=== PATIENT | female | born 1975 | race Caucasian/White ===

== ENCOUNTER 2020-02-12 09:08 | Outpatient (CLI) | payer MEDICARE, SELFPAY ==
--- NOTE | ~2020-02-12 | XR_ITS ---
XR knee RT 3V 02/12/2020 10:17 Indication: Right knee pain Procedure: 3 views right knee Comparison: No prior studies for comparison. Findings: There is mild patellofemoral compartment osteoarthritis. No fracture, subluxation or disloc ation. No joint effusion. No focal soft tissue abnormality. Impression: 1: Mild patellofemoral compartment osteoarthritis. Reviewed, dictated and finalized at location A. Impression: 1: Mild patellofemoral compartment osteoarthritis.
--- NOTE | ~2020-02-12 | XR_ITS ---
EXAMINATION: HAND-JOSELIN ARTHRITIS 3+VIEWS DATE: 02/12/2020 10:17 INDICATION: Unspecified osteoarthritis TECHNIQUE: Posteroanterior, lateral, and oblique views of the left and of the right hands as well as a ballcatchers view of both hands were obtained. COMPARISON: None. FINDINGS: The positioning on the lateral projection of the left wrist is suboptimal however there appears to be increased lunocapitate and scapholunate angles consistent with dorsal intercalated segment instabili ty (DISI). Alignment at both hands and wrists is otherwise normal. No fracture. The left scaphoid bon e appears subtly decreased in size relative to the right scaphoid with irregular proximal cortical co ntour with subtle increased sclerosis suggesting possible osteonecrosis. Mild osteoarthritis at the l eft radiocarpal, midcarpal and triscaphe joints. Suggestion of a small loose body at the dorsal side of the radiocarpal articulation. Additional relatively symmetric minimal osteoarthritis at the bilate ral first metacarpophalangeal and a few interphalangeal joints. No erosions to suggest an inflammator y arthritis. IMPRESSION: 1. Asymmetric mild osteoarthritis at the left wrist and carpus with small and somewhat irregularly sh aped left lunate and DISI which suggests secondary osteoarthritis related to either prior trauma or o steonecrosis of the lunate. 2. Otherwise minimal osteoarthritis with typical relatively symmetric distribution at the bilateral f irst metacarpophalangeal and multiple interphalangeal joints. Reviewed, dictated and finalized at location A. IMPRESSION: 1. Asymmetric mild osteoarthritis at the left wrist and carpus with small and s omewhat irregularly shaped left lunate and DISI which suggests secondary osteoa rthritis related to either prior trauma or osteonecrosis of the lunate. 2. Otherwise minimal osteoarthritis with typical relatively symmetric distribut ion at the bilateral first metacarpophalangeal and multiple interphalangeal vandana nts.
--- NOTE | ~2020-02-12 | XR_ITS ---
XR lumbar spine 2-3V 02/12/2020 10:17 Indication: Low back pain Procedure: 3 views lumbar spine Comparison: 11/17/2011 Findings: There is calcification right upper abdomen, likely a gallstone. Vertebral body heights are maintained. No acute fracture or traumatic malalignment. No evidence for spondylolisthesis. No signif icant disc narrowing. Pedicles intact. Sacral foramen are symmetric. Impression: 1: No significant abnormality of the lumbar spine. 2: Probable cholelithiasis. Reviewed, dictated and finalized at location A. Impression: 1: No significant abnormality of the lumbar spine. 2: Probable cholelithiasis.
--- NOTE | ~2020-02-12 | XR_ITS ---
EXAMINATION: XR foot RT standing 2V DATE: 02/12/2020 10:17 INDICATION: Normally immunologic findings in the serum TECHNIQUE: Dorsoplantar and lateral views of the right foot were obtained. COMPARISON: Right ankle radiographs dated 11/17/2011 FINDINGS: Interval removal of the prior plain screw fixation at the distal right fibula which has been resected . Screws previously at the medial malleolus of also been removed along with resection of the tip of t he medial malleolus. Right ankle and subtalar arthrodesis with a retrograde intramedullary rajan and in terlocking screw fixation. There are couple additional screws with washers, one at the distal tibia a nd one spanning the subtalar joint. The ankle joint appear solidly fused. Residual lucency and cortic ated articular surfaces across the subtalar joint line. Alignment of the ankle and hindfoot is near-a natomic. Third and fourth hammertoes. No fracture. Mild osteoarthritis at the first metatarsophalange al and a few interphalangeal joints. No cortical erosions. Achilles calcaneal spur. Soft tissues are unremarkable. IMPRESSION: 1. Instrumented right ankle and hindfoot arthrodesis in near-anatomic alignment. 2. Polyarticular arthritis in the forefoot. Reviewed, dictated and finalized at location A. IMPRESSION: 1. Instrumented right ankle and hindfoot arthrodesis in near-anatomic alignment . 2. Polyarticular arthritis in the forefoot.
--- NOTE | ~2020-02-12 | XR_ITS ---
EXAMINATION: XR foot LT standing 2V DATE: 02/12/2020 10:17 INDICATION: Normally immunologic findings in the serum. TECHNIQUE: Dorsoplantar and lateral views of the left foot were obtained. COMPARISON: None. FINDINGS: Alignment is normal. No fracture. Mild osteoarthritis at the first metatarsophalangeal and a few inte rphalangeal joints. No erosions. Achilles calcaneal spur. Soft tissues are unremarkable. IMPRESSION: 1. Plantar calcaneal spur plantar calcaneal spur and mild osteoarthritis in the forefoot. Reviewed, dictated and finalized at location A.
--- NOTE | ~2020-02-12 | XR_ITS ---
XR knee LT 3V 02/12/2020 10:17 Indication: Left knee pain Procedure: 3 views left knee Comparison: No prior studies for comparison. Findings: There is mild osteoarthritis of the medial compartment. No fracture, subluxation or disloca tion. No significant joint effusion. Impression: 1: Mild medial compartment osteoarthritis of the left knee. Reviewed, dictated and finalized at location A. Impression: 1: Mild medial compartment osteoarthritis of the left knee.
[2020-02-12 10:08] LABS: CRP 4.4 mg/dL (<1.0)
[2020-02-12 10:17] LABS: Erythrocyte Sedimentation Rate 14 mm/hr (0-20)
[2020-02-12 10:23] LABS: Complement C3 132 mg/dL (88-165)
[2020-02-14 20:42] LABS: Lupus dRVVT 1:1 Mix Interpreta Not Indicated; Lupus dRVVT Screen 33 sec (<=45); PTT-LA Screen 35 sec (<=40)
[2020-02-15 02:38] LABS: Anti Cardio Antibody IgM 26 MPL (<=12); Anti Cardiolipin Antibody IgA <11 APL (<=11); Anti Cardiolipin Antibody IgG <14 GPL (<=14)
[2020-02-15 20:03] LABS: Angiotensin Converting Enzyme 76 U/L (9-67)
[2020-02-16 09:27] LABS: SS-A <1.0; SS-B <1.0
[2020-02-17 09:42] LABS: SM Antibody <1.0; SM/RNP Antibody <1.0
[2020-02-17 10:23] LABS: Anti Cyclic Citrullinated Pept <16 Units (<20)
== END 2020-02-12 09:09 | disposition home or self-care (01) ==
PROVIDERS: PCP Family Medicine; Visit Provider Internal Medicine
DX: R76.8 Other specified abnormal immunological findings in serum (principal); M19.042 Primary osteoarthritis, left hand; M17.0 Bilateral primary osteoarthritis of knee; Z98.1 Arthrodesis status; M77.32 Calcaneal spur, left foot; M19.072 Primary osteoarthritis, left ankle and foot
CPT/HCPCS: 36415; 72100; 73130; 73562; 73620; 82164; 85613; 85652; 85730; 86140; 86146; 86147; 86160; 86200; 86225; 86235

== ENCOUNTER 2020-04-08 09:40 | Outpatient (CLI) | payer MEDICARE, SELFPAY ==
--- NOTE | ~2020-04-08 | XR_ITS ---
EXAMINATION: XR chest 2V EXAM DATE: 04/08/2020 10:03 INDICATION: Shortness of breath. TECHNIQUE: Frontal and lateral projections of the chest obtained and reviewed. Comparison is made to prior examination from 09/18/2016. FINDINGS: The lungs are clear. There are no pleural effusions. The cardiomediastinal silhouette is within normal limits. There is no pneumothorax suspected. Lower cervical fusion hardware. IMPRESSION: No acute cardiopulmonary findings. Reviewed, dictated and finalized at location B.
== END 2020-04-08 09:41 | disposition home or self-care (01) ==
PROVIDERS: PCP Family Medicine; Visit Provider Internal Medicine
DX: R06.02 Shortness of breath (principal)
CPT/HCPCS: 71046

== ENCOUNTER 2020-04-23 08:59 | Outpatient (CLI) | payer MEDICARE, SELFPAY ==
--- NOTE | 2020-04-23 10:45 | NEURO_ITS ---
Patient Number: [id number] Impression: # Complains of pain in both hands. # Right Carpal Tunnel Syndrome. # Left evolving Carpal Tunnel Syndrome. # Normal needle/EMG exam. # Clinical correlation recommended. Nerve Conduction Studies Anti Sensory Summary Table Stim Site NR Peak (ms) P-T Amp (?V) Site1 Site2 Delta-P (ms) Dist (cm) Manolo (m/s) Left Median Anti Sensory (2-3nd Digit) Wrist 3.0 78.1 Wrist 2-3nd Digit 3.0 14.0 47 Wrist 2.9 63.4 Wrist 2-3nd Digit 3.0 14.0 47 Right Median Anti Sensory (2-3nd Digit) Wrist 3.7 31.9 Wrist 2-3nd Digit 3.7 14.0 38 Wrist 4.0 17.7 Wrist 2-3nd Digit 3.7 14.0 38 Left Radial Anti Sensory (Base 1st Digit) Wrist 2.1 25.5 Wrist Base 1st Digit 2.1 0.0 Right Radial Anti Sensory (Base 1st Digit) Wrist 2.1 30.4 Wrist Base 1st Digit 2.1 0.0 Left Ulnar Anti Sensory (5th Digit) Wrist 2.3 80.8 Wrist 5th Digit 2.3 14.0 61 Right Ulnar Anti Sensory (5th Digit) Wrist 2.2 44.0 Wrist 5th Digit 2.2 14.0 64 Motor Summary Table Stim Site NR Onset (ms) O-P Amp (mV) Site1 Site2 Delta-0 (ms) Dist (cm) Manolo (m/s) Left Median Motor (Abd Poll Brev) Wrist 3.4 3.6 Elbow Wrist 4.5 26.0 58 Elbow 7.9 6.8 Right Median Motor (Abd Poll Brev) Wrist 4.3 3.4 Elbow Wrist 4.0 26.0 65 Elbow 8.3 5.3 Left Ulnar Motor (Abd Dig Minimi) Wrist 2.3 6.6 A Elbow Wrist 4.2 27.0 64 A Elbow 6.5 6.2 Right Ulnar Motor (Abd Dig Minimi) Wrist 2.2 7.0 A Elbow Wrist 4.3 26.0 60 A Elbow 6.5 6.3 F Wave Studies NR F-Lat (ms) L-R F-Lat (ms) Left Median (Mrkrs) (Abd Poll Brev) 25.98 0.33 Right Median (Mrkrs) (Abd Poll Brev) 26.32 0.33 Left Ulnar (Mrkrs) (Abd Dig Min) 25.21 0.88 Right Ulnar (Mrkrs) (Abd Dig Min) 26.09 0.88 EMG Side Muscle Nerve Root Ins Act Fibs Amp Dur Recrt Comment Right 1stDorInt Ulnar C8-T1 Nml Nml Nml Nml Nml Right Ext Indicis Radial (Post Int) C7-8 Nml Nml Nml Nml Nml Right Ext Digitorum Radial (Post Int) C7-8 Nml Nml Nml Nml Nml Right BrachioRad Radial C5-6 Nml Nml Nml Nml Nml Right PronatorTeres Median C6-7 Nml Nml Nml Nml Nml Right Abd Poll Brev Median C8-T1 Nml Nml Nml Nml Nml Left 1stDorInt Ulnar C8-T1 Nml Nml Nml Nml Nml Left Ext Indicis Radial (Post Int) C7-8 Nml Nml Nml Nml Nml Left Ext Digitorum Radial (Post Int) C7-8 Nml Nml Nml Nml Nml Left BrachioRad Radial C5-6 Nml Nml Nml Nml Nml Left PronatorTeres Median C6-7 Nml Nml Nml Nml Nml Left Abd Poll Brev Median C8-T1 Nml Nml Nml Nml Nml Right ABD Dig Min Ulnar C8-T1 Nml Nml Nml Nml Nml Left ABD Dig Min Ulnar C8-T1 Nml Nml Nml Nml Nml MTDD
== END 2020-04-23 09:00 | disposition home or self-care (01) ==
LOC: ANHNEURO 09:01
PROVIDERS: PCP Family Medicine; Visit Provider Nurse Practitioner Family
DX: G56.03 Carpal tunnel syndrome, bilateral upper limbs (principal)
CPT/HCPCS: 95886; 95911

== ENCOUNTER 2021-05-06 08:09 | Outpatient (CLI) | payer MEDICARE, SELFPAY ==
--- NOTE | ~2021-05-06 | US_ITS ---
EXAMINATION: US venous doppler [facility] EXAM DATE: 05/06/2021 08:42 INDICATION: Left leg pain and swelling. History of blood clots. TECHNIQUE: Multiple grayscale, color flow and Doppler images of the left lower extremity deep venous system were obtained and reviewed. There is no prior study for comparison. FINDINGS: The left common femoral, femoral and profunda veins demonstrate normal color flow, respirat ory variation, augmentation and compressibility. Compressibility, color flow confirmed within the le ft popliteal, posterior tibial, peroneal, and greater saphenous veins. IMPRESSION: 1. No left lower extremity deep venous thrombosis. Reviewed, dictated and finalized at location B.
== END 2021-05-06 08:10 | disposition home or self-care (01) ==
PROVIDERS: PCP Family Medicine; Visit Provider Orthopaedic Surgery
DX: M79.89 Other specified soft tissue disorders (principal)
CPT/HCPCS: 93971

== ENCOUNTER 2021-12-24 13:03 | Inpatient (IN) | payer MEDICARE, MEDICAID, SELFPAY ==
[2021-12-24] VITALS (14 sets, daily range): BP systolic 95–139; BP diastolic 59–83; PULSE 71–81; RESP 12–32; TEMP 36.3–37.3; O2SAT 83–97; BMI 48.6
--- NOTE | ~2021-12-24 | XR_ITS ---
XR chest 1V portable 12/24/2021 14:07 Indication: Shortness of breath for 5 days. Wheezing. Procedure: AP portable chest Comparison: Comparison to multiple prior studies sequentially, with oldest reviewed study dated 08/10. Findings: There is diffuse bilateral airspace disease which may represent edema or pneumonia. No pleu ral effusion or pneumothorax. No acute osseous abnormality. Impression: 1: Diffuse bilateral airspace disease has developed which may represent edema or pneumonia. Reviewed, dictated and finalized at location B. Impression: 1: Diffuse bilateral airspace disease has developed which may represent edema o r pneumonia.
--- NOTE | ~2021-12-24 | XR_ITS ---
EXAMINATION: XR chest 2V DATE: 12/27/2021 09:25 INDICATION: Shortness of breath TECHNIQUE: Frontal and lateral views of the chest are obtained COMPARISON: 12/24/2021 FINDINGS: Patchy interstitial and airspace opacities persist throughout all lung zones with slight im provement. There is no pleural effusion or pneumothorax. The cardiomediastinal silhouette is normal. There is mild thoracic spondylosis. Changes of anterior fusion are noted in the cervical spine. IMPRESSION: 1. Diffuse lung disease with interval improvement, consistent with resolving pneumonia and/or pulmona ry edema. Reviewed, dictated and finalized at location B. IMPRESSION: 1. Diffuse lung disease with interval improvement, consistent with resolving pn eumonia and/or pulmonary edema.
--- NOTE | 2021-12-24 13:14 | ECG_ITS ---
Measurements Intervals [place] Rate: 79 P: 41 DE: 136 QRS: 8 QRSD: 94 T: 29 QT: 368 QTc: 422 Interpretive Statements SINUS RHYTHM POSSIBLE LEFT ATRIAL ENLARGEMENT [-0.1mV P-WAVE IN V1/V2] OTHERWISE NORMAL ECG NO PREVIOUS ECG AVAILABLE FOR COMPARISON Electronically Signed On 12-24-2021 16:17:43 CDT by Yaakov Interiano M.D.
[2021-12-24] MEDS: methylPREDNISolone SOD SUCC 125 MG VIAL IV PUSH (13:25)
[2021-12-24] MEDS: ALBUTEROL SULFATE NEB 2.5 MG/0.5 ML INH 15 MG INHALATION (13:30)
[2021-12-24] MEDS: IPRATROPIUM BR 0.02% INH SOLN 0.5 MG/2.5 ML VIAL 1.5 MG INHALATION (13:30)
[2021-12-24 13:34] LABS: Basophils Absolute Auto 0.1 K/mm3 (0.0-0.1); Basophils Percent Auto 0.4 % (0.2-1.2); Eosinophils Absolute Auto 0.1 K/mm3 (0-0.3); Eosinophils Percent Auto 0.6 % (0-4.4); Hematocrit 43.3 % (37.0-47.0); Hemoglobin 14.6 g/dL (12.0-15.0); Immature Granulocyte Percent A 0.6 % (0-0.5); Lymphocytes Absolute Auto 0.92 K/mm3 (0.9-3.2); Lymphocytes Percent Auto 5.5 % (18.3-44.2); Mean Corpuscular HGB Conc 33.7 g/dl (32-36); Mean Corpuscular Hemoglobin 30.4 pg (26-34); Mean Corpuscular Volume 90.2 fl (80-100); Mean Platelet Volume 10.7 fl (7.4-10.4); Monocytes Absolute Auto 0.3 K/mm3 (0.1-0.6); Monocytes Percent Auto 1.7 % (2.6-8.5); Neutrophils Absolute Auto 15.1 K/mm3 (1.3-6.7); Neutrophils Percent Auto 91.2 % (45.5-73.1); Platelet Count Result 371 k/mm3 (150-375); Red Cell Distribution Width 14.1 % (11.5-14.5); White Blood Count 16.6 K/mm3 (4.5-10.0)
[2021-12-24 13:43] LABS: Alveolar/Arterial O2 Gradient 157.3 mmHg; Base Excess ABG 0.4 mEq/l (+/-2.0); Device NASAL CANNULA; Fractional Inspired Oxygen 36 %; HCO3 ABG 24.2 mEq/l (22.0-26.0); Modified Allen's Test Pass; Oxygen Content ABG 18.8 %vol (16.0-22.0); Oxygen Saturation ABG 90.7 % (95.0-100.0); Oxyhemoglobin 88.6 % THb (90.0-100.0); PCO2 ABG 36.7 mmHg (35.0-45.0); PO2 ABG 56.8 mmHg (80.0-100.0); PO2 FiO2 Ratio Arterial Blood 1.58 %; Site Drawn RIGHT RADIAL; Total Hemoglobin 15.1 g/dL (12.0-18.0); pH ABG 7.437 (7.350-7.450)
--- NOTE | 2021-12-24 13:45 | ED.SOB ---
HPI - SOB/Dyspnea General Chief Complaint: Shortness of Breath/Dyspnea Stated Complaint: shortness Time Seen by Provider: 12/24/21 13:14 Source: patient History of Present Illness HPI Narrative: Patient presents with shortness of breath. For she had symptoms getting progressively worse over the past few days states she has had a hard time breathing so she came to the ER for evaluation. Describes the symptom not getting enough air. She was history of bronchitis and this feels prior episodes. She also reports associated cough she denies any fevers or congestion she denies any nausea vomiting diarrhea. She denies any chest. pain she reports does not usually wear oxygen at home Related Data Home Medications Medication Instructions Recorded Confirmed clonazepam 0.5 mg tablet 1 mg PO TID 01/31/20 12/24/21 cyclobenzaprine 10 mg tablet 10 mg PO TID 01/31/20 12/24/21 fluticasone propionate 50 1 inhalation INHALATION QAM 01/31/20 12/24/21 mcg/actuation blister powder for inhalation budesonide-formoterol [Symbicort] 2 puff INHALATION DAILY 12/24/21 12/24/21 duloxetine [Cymbalta] 60 mg PO BID 12/24/21 12/24/21 gabapentin 600 mg PO TID 12/24/21 12/24/21 hydrocodone-acetaminophen [[place]] 1 tablet PO TID PRN 12/24/21 12/24/21 levothyroxine 50 mcg PO DAILY 12/24/21 12/24/21 Allergies Allergy/AdvReac Type Severity Reaction Status Date / Time levofloxacin Allergy Severe Hives Verified 12/24/21 13:22 propoxyphene Allergy Unknown ITCHING Verified 12/24/21 13:22 KETOROLAC TROMETHAMINE Allergy Intermediate ITCHING Uncoded 12/24/21 13:22 Review of Systems Review of Systems: CONSTITUTIONAL: Denies fever, chills, or sweats. EYES: Denies visual changes, redness, or discharge. ENT: Denies rhinorrhea, congestion, sore throat, or otalgia. CARDIOVASCULAR: Denies chest pain, palpitations, or edema. RESPIRATORY: Shortness of breath and cough GASTROINTESTINAL: Denies abdominal pain, nausea, vomiting, or diarrhea. GENITOURINARY: Denies dysuria or hematuria. SKIN: Denies rash or itching. MUSCULOSKELETAL: Denies back pain, joint pain, or myalgia. NEUROLOGIC: Denies headache, numbness, dizziness, or weakness. PSYCHIATRIC: Denies anxiety or depression. All systems reviewed & are unremarkable except as noted in HPI and below PMFSH Past Medical History Medical History (Updated 12/24/21 @ 18:04 by Angelika Vazquez PA-C) RODO positive (10/2019) Antiphospholipid antibody positive Anxiety Asthma Chronic obstructive pulmonary disease Deep vein thrombosis of right upper extremity Related to PICC line. Generalized osteoarthritis of multiple sites Hyperlipidemia Hypertension Obstructive sleep apnea Pneumonia Tobacco dependence Surgical History Surgical History (Updated 12/24/21 @ 18:02 by Angelika Vazquez PA-C) History of section History of fusion of cervical spine Fusion after C6-C7 fracture. History of open reduction and internal fixation (ORIF) procedure Right ankle fracture. History of partial hysterectomy History of tubal ligation Family History Family History Mother Arthritis Liver disease Heart disease History of multiple strokes Father Malignant neoplasm of prostate Lung disease Grandparent History of multiple strokes Heart disease Sibling Throat cancer Sibling Liver disease Social History Social History (Updated 12/24/21 @ 18:02 by Angelika Vazquez PA-C) Social History: Surrogate decision maker: Code status: Full code. Smoking packs per day: 0.5 Smoking cigarettes per day: 10.0 Years smoked: 30 Smoking pack-years: 15.00 Smoking status: Current every day smoker Tobacco type: cigarettes Second hand tobacco smoke exposure: No Alcohol intake: current Substance use type: painkillers Last use: 12/24/21 0900hr Spiritual care concerns: No Exam Narrative: GENERAL: Well-appearing, well-nourished
[2021-12-24 13:52] LABS: Alanine Aminotransferase 20 U/L (4-35); Albumin Level 3.8 g/dL (3.5-5.1); Alkaline Phosphatase 133 U/L (38-126); Anion Gap 5 mmol/L (8-16); Aspartate Amino Transferase 27 U/L (14-36); Bilirubin,Total 0.5 mg/dL (0.2-1.3); Blood Urea Nitrogen 13 mg/dL (7-17); Calcium 8.9 mg/dL (8.4-10.2); Carbon Dioxide 28 mmol/L (22-30); Chloride 104 mmol/L (98-107); Estimated CRCL calculation 114 ml/min; Estimated Glomerular Filt Rate > 60; Glucose 121 mg/dL (65-110); Potassium 3.5 mmol/L (3.4-5.0); Sodium 137 mmol/L (137-145)
[2021-12-24] MEDS: ACETAMINOPHEN 500 MG TABLET 1000 MG PO (15:03)
[2021-12-24] MEDS: ONDANSETRON INJ 4 MG/2 ML VIAL IV PUSH (15:03)
[2021-12-24 15:55] LABS: SARS-CoV-2 RNA PCR Negative
--- NOTE | 2021-12-24 16:00 | PM.IMHP ---
H&P: HPI History of Present Illness Date/Time: 12/24/21 16:00 Chief Complaint: Shortness of breath. Narrative: This is a pleasant 46-year-old female smoker with COPD, chronic pain syndrome, anxiety, and arthritis with a positive RODO who presented to the emergency department from home for evaluation of shortness of breath. Last weekend she developed sinus congestion postnasal drip and she developed a cough productive of yellowish sputum on Monday or Monday. She has been taking Mucinex and other [id number] cold and flu medication without a whole lot of benefit. These past 2 days she has had increasing shortness of breath despite use of her rescue inhaler and she has had such severe coughing jags that she has had a couple of episodes of emesis. This morning she could not do much activity at all without being extremely winded and she drove herself to the ER for evaluation. SpO2 was 83% on room air on arrival and she is currently on 4 L nasal cannula. She was given a nebulizer and IV Solu-Medrol in the ER in is feeling much better at this time. Chest x-ray showed diffuse bilateral airspace disease and she is being admitted in this setting. She denies sick contacts. She has not had fever or chills but endorses mild hot flashes. Her appetite has also been decreased though her sense of smell and taste are okay. She has been taking acetaminophen alternating with ibuprofen for generalized headache though that persists. She has also had mild pleuritic chest pain with coughing but denies exertional chest pain. No palpitations, orthopnea, PND, or lower extremity edema. She denies dysphagia and concerns for aspiration. No red, swollen, or tender joints at this time. She denies rash. Review of Systems Review of Systems: Twelve systems were reviewed and are negative except for as per HPI. [facility] Past Medical History Medical History (Updated 12/24/21 @ 21:37 by Angelika Vazquez PA-C) RODO positive (10/2019) Antiphospholipid antibody positive Anxiety Asthma Chronic obstructive pulmonary disease Chronic pain syndrome Deep vein thrombosis of right upper extremity Related to PICC line. Generalized osteoarthritis of multiple sites Hyperlipidemia Hypertension Hypothyroidism Obstructive sleep apnea Intolerant to CPAP. Pneumonia Tobacco dependence Surgical History Surgical History (Updated 12/24/21 @ 18:02 by Angelika G. Gerling, PA-C) History of section History of fusion of cervical spine Fusion after C6-C7 fracture. History of open reduction and internal fixation (ORIF) procedure Right ankle fracture. History of partial hysterectomy History of tubal ligation Family History Family History Mother Arthritis Liver disease Heart disease History of multiple strokes Father Malignant neoplasm of prostate Lung disease Grandparent History of multiple strokes Heart disease Sibling Throat cancer Sibling Liver disease Social History Social History (Updated 12/24/21 @ 21:32 by Angelika Vazquez PA-C) Social History: Surrogate decision maker: Yolanda Castillo, daughter. Code status: Full code. Smoking packs per day: 0.5 Smoking cigarettes per day: 10.0 Years smoked: 30 Smoking pack-years: 15.00 Smoking status: Current every day smoker Tobacco type: cigarettes Second hand tobacco smoke exposure: No Alcohol intake: current Alcohol use details: Patient drinks alcohol socially and in moderation. Substance use type: painkillers Last use: 12/24/21 0900hr Spiritual care concerns: No Meds Home Medications and Allergies Home Medications Medication Instructions Recorded Confirmed Type clonazepam 0.5 mg tablet 1 mg PO TID 01/31/20 12/24/21 History cyclobenzaprine 10 mg tablet 10 mg PO TID 01/31/20 12/24/21 History fluticasone propionate 50 1 inhalation INHALATION QAM 01/31/20 12/24/21 History mcg/actuation blister powder for
[2021-12-24] MEDS: KETOROLAC 15 MG/ML VIAL (*BKC) IV PUSH (16:09)
--- NOTE | 2021-12-24 16:14 | PC.NURSE ---
called lab around 1605 - to add on trop baseline and BNP - answered saying adding on now - NC
[2021-12-24 16:38] LABS: NT Pro B Type Natriuretic Pept 1050 pg/mL (5-100)
[2021-12-24 16:49] LABS: Troponin I < 0.012 ng/mL (0.000-0.034)
--- NOTE | 2021-12-24 16:50 | ADMGEN ---
This patient, Tanya Calhoun, was admitted to IMU Room 212-01. Patient/family oriented to hospital policies and general routines including ID bracelet, bed and alarms, visiting hours, pain management, procedures, bathroom and other care routines, personal items, smoking policy, room service/diet, and visiting hours. Information on how to activate the Rapid Response Team has been discussed. Patient/Family are encouraged to report perceived risks to care and to ask questions if they do not understand what they are told or what they should do.
--- NOTE | 2021-12-24 17:27 | PC.NURSE ---
[email or web address] [facility] Admission Note: The patient,Tanya Calhoun,46 y/o, was given written information regarding hospital policies, unit procedures and contact persons. Patient's smoking status: .Received patient, AAOX4, O2 @ 4L NC, no distress noted from ED
[2021-12-24 20:11] LABS: Troponin I < 0.012 ng/mL (0.000-0.034)
[2021-12-24] MEDS: IPRATROPIUM BR 0.02% INH SOLN 0.5 MG/2.5 ML VIAL INHALATION (20:52)
[2021-12-24] MEDS: ALBUTEROL SULFATE NEB 2.5 MG/0.5 ML INH 5 MG INHALATION (20:52)
[2021-12-24] MEDS: clonazePAM (*CRX) 0.5 MG TABLET 1 MG PO (21:42)
[2021-12-24] MEDS: CYCLOBENZAPRINE HCL 10 MG TABLET PO (21:42)
[2021-12-24] MEDS: HYDROcodone/acetaminophen (*CRX) 5-325 MG TABLET 1 TAB PO (21:42)
[2021-12-24] MEDS: GABAPENTIN 300 MG CAPSULE 600 MG PO (22:03)
[2021-12-24 22:04] LABS: Troponin I < 0.012 ng/mL (0.000-0.034)
[2021-12-25] VITALS (20 sets, daily range): BP systolic 106–139; BP diastolic 54–82; PULSE 56–86; RESP 18–26; TEMP 36.3–36.6; O2SAT 92–99
[2021-12-25] MEDS: IPRATROPIUM BR 0.02% INH SOLN 0.5 MG/2.5 ML VIAL INHALATION ×4 (02:20→20:59)
[2021-12-25] MEDS: ALBUTEROL SULFATE NEB 2.5 MG/0.5 ML INH 5 MG INHALATION ×4 (02:20→20:59)
[2021-12-25 05:06] LABS: Hematocrit 46.9 % (37.0-47.0); Hemoglobin 15.1 g/dL (12.0-15.0); Mean Corpuscular HGB Conc 32.2 g/dl (32-36); Mean Corpuscular Hemoglobin 30.4 pg (26-34); Mean Corpuscular Volume 94.4 fl (80-100); Mean Platelet Volume 10.6 fl (7.4-10.4); Platelet Count Result 322 k/mm3 (150-375); Red Blood Count 4.97 M/mm3 (4.2-5.4); Red Cell Distribution Width 14.2 % (11.5-14.5); White Blood Count 15.5 K/mm3 (4.5-10.0)
[2021-12-25 05:36] LABS: Alanine Aminotransferase 20 U/L (4-35); Albumin Level 3.7 g/dL (3.5-5.1); Alkaline Phosphatase 124 U/L (38-126); Anion Gap 3 mmol/L (8-16); Aspartate Amino Transferase 22 U/L (14-36); Bilirubin,Total 0.4 mg/dL (0.2-1.3); Blood Urea Nitrogen 13 mg/dL (7-17); CRP 24.6 mg/dL (<1.0); Calcium 8.9 mg/dL (8.4-10.2); Carbon Dioxide 30 mmol/L (22-30); Chloride 104 mmol/L (98-107); Estimated CRCL calculation 116 ml/min; Estimated Glomerular Filt Rate > 60; Glucose 130 mg/dL (65-110); Magnesium 2.3 mg/dL (1.6-2.3); Sodium 137 mmol/L (137-145)
[2021-12-25] MEDS: LEVOTHYROXINE SODIUM 50 MCG TABLET PO (06:05)
[2021-12-25] MEDS: clonazePAM (*CRX) 0.5 MG TABLET 1 MG PO ×3 (06:05→23:03)
[2021-12-25] MEDS: CYCLOBENZAPRINE HCL 10 MG TABLET PO ×3 (06:05→23:04)
[2021-12-25] MEDS: GABAPENTIN 300 MG CAPSULE 600 MG PO ×3 (06:05→23:03)
[2021-12-25] MEDS: FLUTICASONE/SALMETEROL 115-21 MCG INHALER 1 PUFF 2 PUFF INHALATION ×2 (08:08→21:04)
[2021-12-25 08:21] LABS: Free T4 Free Thyroxine Reflex 1.02 ng/dL (0.78-2.19)
[2021-12-25] MEDS: predniSONE 20 MG TABLET 40 MG PO (08:50)
[2021-12-25] MEDS: DULoxetine HCL 60 MG CAPSULE.DR PO ×2 (08:50→20:33)
[2021-12-25] MEDS: HYDROcodone/acetaminophen (*CRX) 5-325 MG TABLET 1 TAB PO ×2 (08:56→20:33)
[2021-12-25 09:18] LABS: Total Triiodothyronine (T3) 0.85 NG/ML (0.97-1.69)
[2021-12-25] MEDS: guaiFENesin 12 HR 600 MG TABCR PO ×2 (10:29→20:33)
[2021-12-25 11:29] LABS: Influenza Control Positive
--- NOTE | 2021-12-25 12:18 | PM.IMPN ---
Progress Note: A&P Assessment and Plan (1) Acute respiratory failure with hypoxia: Code(s): J96.01 - Acute respiratory failure with hypoxia Status: Acute Assessment and Plan: Secondary to diffuse pulmonary infiltrates, likely pneumonia. Her history and physical exam findings do not suggest CHF. She has been started on azithromycin and ceftriaxone, pending sputum culture. If no improvement with the above treatment, consider pulmonology consult given history of positive RODO. Patient currently on 4 L of oxygen, does not wear oxygen at baseline. Was noted to be hypoxic in the emergency department. She was unable to complete a full sentence without dyspnea (2) Pneumonia: Qualifiers: Laterality: unspecified laterality Lung location: unspecified part of lung Pneumonia type: due to unspecified organism Qualified Code(s): J18.9 - Pneumonia, unspecified organism Code(s): J18.9 - Pneumonia, unspecified organism Status: Acute Assessment and Plan: SARS-CoV-2 by PCR was negative. Continue Zithromax and ceftriaxone, day 1. Monitor vital signs, I&Os, neuro status and patient is a fall risk Follow WBC, serum electrolytes, temperature curves and cultures Send sputum cultures Oxygen via NC; wean as tolerated. Keep SpO2 greater than 88% Ceftriaxone 2 gram IV q24H and Azithromycin 500mg IV q24H Initiate Chest physiotherapy Administer Mucinex 600 mg b.i.d. DuoNeb q6H and Albuterol q2H PRN P.r.n. Tylenol, Zofran, and melatonin Urine will be sent to check for Legionella and strep pneumonia antigens. (3) Chronic obstructive pulmonary disease: Code(s): J44.9 - Chronic obstructive pulmonary disease, unspecified Status: Chronic Assessment and Plan: Monitor Oxygen saturation, Oxygen via NC; wean oxygen as tolerated, keep SpO2 greater than 88% Send sputum cultures if possible Administer 40 mg of prednisone daily x5 days (4) Tobacco dependence: Code(s): F17.200 - Nicotine dependence, unspecified, uncomplicated Status: Acute Assessment and Plan: Smoking cessation is imperative and was discussed for 3 minutes. She declines the need for nicotine patch. (5) Hypertension: Code(s): I10 - Essential (primary) hypertension Status: Acute Assessment and Plan: Blood pressures were reviewed and they are stable. Continue antihypertensives and monitor daily. (6) Chronic pain syndrome: Code(s): G89.4 - Chronic pain syndrome Status: Acute Assessment and Plan: Continue cyclobenzaprine, hydrocodone, and gabapentin. Discussed pain management (7) Hypothyroidism: Code(s): E03.9 - Hypothyroidism, unspecified Status: Acute Assessment and Plan: Continue levothyroxine (8) Anxiety: Code(s): F41.9 - Anxiety disorder, unspecified Status: Acute Assessment and Plan: Continue duloxetine and clonazepam as needed. Subjective Date/time seen: 12/25/21 12:18 Patient is alert and oriented x4. She takes multiple narcotics at patient was admitted for community-acquired pneumonia. We discussed initiating azithromycin, Rocephin, frantz, oxygen use and adding Mucinex her medication regimen. Pain Medications were created p.r.n. during her hospitalization due to her acute respiratory status. Patient was educated to request for medications when and if she is in pain. Discussed referral to pain management center, patient did not appreciate the suggestion. She took it as inference for narcotic seeking behavior and abuse. Attempted discussed benefits of pain management. Patient reports that she feels significantly better today, however she continues to be on 4 L oxygen per nasal cannula. Asked nursing staff to titrate this down when appropriate. Patient does not wear oxygen at baseline. Review of Systems Review of Systems: All systems reviewed & are unremarkable except as noted in HPI and below Exam
[2021-12-26] VITALS (20 sets, daily range): BP systolic 127–143; BP diastolic 59–80; PULSE 54–92; RESP 14–24; TEMP 36.4–36.7; O2SAT 89–96
[2021-12-26] MEDS: IPRATROPIUM BR 0.02% INH SOLN 0.5 MG/2.5 ML VIAL INHALATION ×4 (02:33→20:25)
[2021-12-26] MEDS: ALBUTEROL SULFATE NEB 2.5 MG/0.5 ML INH 5 MG INHALATION ×4 (02:33→20:25)
[2021-12-26] MEDS: GABAPENTIN 300 MG CAPSULE 600 MG PO ×3 (06:18→21:23)
[2021-12-26] MEDS: clonazePAM (*CRX) 0.5 MG TABLET 1 MG PO ×3 (06:18→21:23)
[2021-12-26] MEDS: LEVOTHYROXINE SODIUM 50 MCG TABLET PO (06:18)
[2021-12-26] MEDS: CYCLOBENZAPRINE HCL 10 MG TABLET PO ×3 (06:18→21:24)
[2021-12-26 08:20] LABS: Basophils Percent Auto 0.3 % (0.2-1.2); Eosinophils Absolute Auto 0.6 K/mm3 (0-0.3); Eosinophils Percent Auto 3.7 % (0-4.4); Hematocrit 43.3 % (37.0-47.0); Hemoglobin 14.7 g/dL (12.0-15.0); Immature Granulocyte Absolute 0.12 K/mm3 (0.00-0.031); Immature Granulocyte Percent A 0.8 % (0-0.5); Lymphocytes Absolute Auto 3.12 K/mm3 (0.9-3.2); Lymphocytes Percent Auto 20.6 % (18.3-44.2); Mean Corpuscular HGB Conc 33.9 g/dl (32-36); Mean Corpuscular Hemoglobin 30.8 pg (26-34); Mean Corpuscular Volume 90.6 fl (80-100); Mean Platelet Volume 10.4 fl (7.4-10.4); Monocytes Absolute Auto 0.6 K/mm3 (0.1-0.6); Neutrophils Absolute Auto 10.7 K/mm3 (1.3-6.7); Neutrophils Percent Auto 70.6 % (45.5-73.1); Platelet Count Result 373 k/mm3 (150-375); Red Blood Count 4.78 M/mm3 (4.2-5.4); Red Cell Distribution Width 14.3 % (11.5-14.5); White Blood Count 15.1 K/mm3 (4.5-10.0)
[2021-12-26 08:33] LABS: Alanine Aminotransferase 22 U/L (4-35); Albumin Level 3.5 g/dL (3.5-5.1); Alkaline Phosphatase 119 U/L (38-126); Anion Gap 1 mmol/L (8-16); Aspartate Amino Transferase 23 U/L (14-36); Bilirubin,Total 0.4 mg/dL (0.2-1.3); Blood Urea Nitrogen 21 mg/dL (7-17); Calcium 8.7 mg/dL (8.4-10.2); Carbon Dioxide 34 mmol/L (22-30); Chloride 103 mmol/L (98-107); Estimated CRCL calculation 101 ml/min; Estimated Glomerular Filt Rate > 60; Glucose 98 mg/dL (65-110); Magnesium 2.3 mg/dL (1.6-2.3); Potassium 3.4 mmol/L (3.4-5.0); Sodium 138 mmol/L (137-145)
[2021-12-26] MEDS: FLUTICASONE/SALMETEROL 115-21 MCG INHALER 1 PUFF 2 PUFF INHALATION ×2 (08:34→20:25)
[2021-12-26] MEDS: DULoxetine HCL 60 MG CAPSULE.DR PO ×2 (08:46→21:24)
[2021-12-26] MEDS: guaiFENesin 12 HR 600 MG TABCR PO ×2 (08:46→21:24)
[2021-12-26] MEDS: predniSONE 20 MG TABLET 40 MG PO (08:46)
--- NOTE | 2021-12-26 12:45 | PM.IMPN ---
Progress Note: A&P Assessment and Plan (1) Acute respiratory failure with hypoxia: Code(s): J96.01 - Acute respiratory failure with hypoxia Status: Acute Assessment and Plan: Secondary to diffuse pulmonary infiltrates, likely pneumonia. Her history and physical exam findings do not suggest CHF. She has been started on azithromycin and ceftriaxone, pending sputum culture. Patient currently on 1 L of oxygen, does not wear oxygen at baseline. Home oxygen evaluation to be performed on 12/27/2021. Suspect the patient will not need home oxygen. She has been able to titrate down from 4 L to 1 L within 24 hours. (2) Pneumonia: Qualifiers: Laterality: unspecified laterality Lung location: unspecified part of lung Pneumonia type: due to unspecified organism Qualified Code(s): J18.9 - Pneumonia, unspecified organism Code(s): J18.9 - Pneumonia, unspecified organism Status: Acute Assessment and Plan: SARS-CoV-2 by PCR was negative. Monitor vital signs, I&Os, neuro status and patient is a fall risk Follow WBC, serum electrolytes, temperature curves and cultures Oxygen via NC; wean as tolerated. Keep SpO2 greater than 88% Ceftriaxone 2 gram IV q24H and Azithromycin 500mg IV q24H, transition antibiotics to doxycycline on 12/27/2021 Initiate Chest physiotherapy Administer Mucinex 600 mg b.i.d. DuoNeb q6H and Albuterol q2H PRN P.r.n. Tylenol, Zofran, and melatonin Urine will be sent to check for Legionella and strep pneumonia antigens Pending sputum culture. (3) Chronic obstructive pulmonary disease: Code(s): J44.9 - Chronic obstructive pulmonary disease, unspecified Status: Chronic Assessment and Plan: Monitor Oxygen saturation, Oxygen via NC; wean oxygen as tolerated, keep SpO2 greater than 88% Pending sputum culture Administer 40 mg of prednisone daily x5 days (4) Tobacco dependence: Code(s): F17.200 - Nicotine dependence, unspecified, uncomplicated Status: Acute Assessment and Plan: Smoking cessation is imperative and was discussed for 3 minutes. She declines the need for nicotine patch. (5) Hypertension: Code(s): I10 - Essential (primary) hypertension Status: Acute Assessment and Plan: Blood pressures were reviewed and they are stable. Continue antihypertensives and monitor daily. (6) Chronic pain syndrome: Code(s): G89.4 - Chronic pain syndrome Status: Acute Assessment and Plan: Continue cyclobenzaprine, hydrocodone, and gabapentin. Discussed pain management clinic (7) Hypothyroidism: Code(s): E03.9 - Hypothyroidism, unspecified Status: Acute Assessment and Plan: Continue levothyroxine (8) Anxiety: Code(s): F41.9 - Anxiety disorder, unspecified Status: Acute Assessment and Plan: Continue duloxetine and clonazepam as needed. Subjective Date/time seen: 12/26/21 12:45 Patient is alert and oriented x4. She remains on 1 L of oxygen per nasal cannula. Patient is able to complete a full sentence during our discussions. She reports that she still feels fatigued. Potassium was 3.4 this morning therefore she was administered 20 mEq of potassium oral. Patient reports that her respiratory symptoms have improved. She continues with the [place] and incentive spirometry. Patient is also receiving DuoNebs and albuterol p.r.n.. Patient has been receiving azithromycin and ceftriaxone for the past 48 hours. Will transition to doxycycline on 12/27/2021. A home oxygen evaluation will be performed on 12/27/2021. Suspect the patient will not need home oxygen. Patient continues to have a mild leukocytosis. Possibly related to prednisone 40 mg daily that was initiated during this hospitalization due to underlying COPD. She will receive a full 5 day steroid burst. Chest x-ray will be performed on 12/27/2021. Pending Legionella pneumococcal antigens. Sputum spe
[2021-12-26] MEDS: POTASSIUM CHLORIDE 20 MEQ TABLET PO (14:10)
--- NOTE | 2021-12-26 15:41 | PC.NURSE ---
This patient, Tanya Calhoun, was transferred to [facility] Surg Room 321-02. Patient/family oriented to hospital policies and general routines including ID bracelet, bed and alarms, visiting hours, pain management, procedures, bathroom and other care routines, personal items, smoking policy, room service/diet, and visiting hours. Information on how to activate the Rapid Response Team has been discussed. Patient/Family are encouraged to report perceived risks to care and to ask questions if they do not understand what they are told or what they should do. Continues tx for pna.
[2021-12-27] VITALS (20 sets, daily range): BP systolic 122–142; BP diastolic 56–79; PULSE 65–119; RESP 16–19; TEMP 36.3–36.6; O2SAT 86–96
[2021-12-27] MEDS: IPRATROPIUM BR 0.02% INH SOLN 0.5 MG/2.5 ML VIAL INHALATION ×3 (02:15→20:01)
[2021-12-27] MEDS: ALBUTEROL SULFATE NEB 2.5 MG/0.5 ML INH 5 MG INHALATION ×3 (02:15→20:01)
[2021-12-27] MEDS: CYCLOBENZAPRINE HCL 10 MG TABLET PO ×3 (05:56→21:27)
[2021-12-27] MEDS: clonazePAM (*CRX) 0.5 MG TABLET 1 MG PO ×3 (05:56→21:26)
[2021-12-27] MEDS: GABAPENTIN 300 MG CAPSULE 600 MG PO ×3 (05:56→21:26)
[2021-12-27] MEDS: LEVOTHYROXINE SODIUM 50 MCG TABLET PO (05:56)
[2021-12-27 06:19] LABS: Basophils Absolute Auto 0.1 K/mm3 (0.0-0.1); Basophils Percent Auto 0.3 % (0.2-1.2); Eosinophils Absolute Auto 0.5 K/mm3 (0-0.3); Eosinophils Percent Auto 3.6 % (0-4.4); Hematocrit 42.8 % (37.0-47.0); Hemoglobin 14.5 g/dL (12.0-15.0); Immature Granulocyte Percent A 1.3 % (0-0.5); Lymphocytes Absolute Auto 3.62 K/mm3 (0.9-3.2); Lymphocytes Percent Auto 24.2 % (18.3-44.2); Mean Corpuscular HGB Conc 33.9 g/dl (32-36); Mean Corpuscular Hemoglobin 30.8 pg (26-34); Mean Corpuscular Volume 90.9 fl (80-100); Mean Platelet Volume 10.3 fl (7.4-10.4); Monocytes Absolute Auto 0.7 K/mm3 (0.1-0.6); Monocytes Percent Auto 4.9 % (2.6-8.5); Neutrophils Absolute Auto 9.8 K/mm3 (1.3-6.7); Neutrophils Percent Auto 65.7 % (45.5-73.1); Platelet Count Result 378 k/mm3 (150-375); Red Blood Count 4.71 M/mm3 (4.2-5.4); Red Cell Distribution Width 14.1 % (11.5-14.5)
[2021-12-27 06:29] LABS: Alanine Aminotransferase 22 U/L (4-35); Albumin Level 3.4 g/dL (3.5-5.1); Alkaline Phosphatase 118 U/L (38-126); Anion Gap 2 mmol/L (8-16); Aspartate Amino Transferase 21 U/L (14-36); Bilirubin,Total 0.4 mg/dL (0.2-1.3); Blood Urea Nitrogen 21 mg/dL (7-17); Calcium 8.6 mg/dL (8.4-10.2); Carbon Dioxide 29 mmol/L (22-30); Chloride 105 mmol/L (98-107); Estimated CRCL calculation 102 ml/min; Estimated Glomerular Filt Rate > 60; Glucose 102 mg/dL (65-110); Potassium 3.7 mmol/L (3.4-5.0); Sodium 136 mmol/L (137-145)
[2021-12-27] MEDS: FLUTICASONE/SALMETEROL 115-21 MCG INHALER 1 PUFF 2 PUFF INHALATION ×2 (08:50→20:01)
[2021-12-27] MEDS: DOXYCYCLINE HYCLATE 100 MG TABLET PO ×2 (08:54→20:22)
[2021-12-27] MEDS: predniSONE 20 MG TABLET 40 MG PO (08:54)
[2021-12-27] MEDS: DULoxetine HCL 60 MG CAPSULE.DR PO ×2 (08:55→20:22)
[2021-12-27] MEDS: guaiFENesin 12 HR 600 MG TABCR PO ×2 (08:55→20:22)
[2021-12-27] MEDS: HYDROcodone/acetaminophen (*CRX) 5-325 MG TABLET 1 TAB PO (09:20)
--- NOTE | 2021-12-27 11:20 | PCCCNOTE ---
On 12/27/21, the student, [Blanche Valencia ], provided care and completed [place] ([facility] documentation on this patient. I have reviewed the student's documentation and agree with the findings.
--- NOTE | 2021-12-27 12:14 | HOMEO2EVAL ---
Evaluation was performed at [facility] Home Oxygen Evaluation RC: Home Oxygen (O2) Evaluation Start: 12/27/21 09:00 Freq: ONCE Status: Active Protocol: RPE Activity Type Activity Date Activity User E-Sign Co-Sign Detail Recorded Client Recorded Date Recorded By Document 12/27/21 11:30 BRIANA [email or web address] 12/27/21 12:13 BRIANA Document 12/27/21 11:31 BRIANA [email or web address] 12/27/21 12:13 BRIANA Document 12/27/21 11:32 BRIANA [email or web address] 12/27/21 12:13 BRIANA Document 12/27/21 11:35 BRIANA [email or web address] 12/27/21 12:13 BRIANA Document 12/27/21 11:36 BRIANA [email or web address] 12/27/21 12:13 BRIANA Document 12/27/21 11:37 BRIANA [email or web address] 12/27/21 12:13 BRIANA Document 12/27/21 11:45 BRIANA [email or web address] 12/27/21 12:13 BRIANA 12/27/21 12/27/21 12/27/21 11:30 11:31 11:32 Home O2 Evaluation Test Phase Resting Resting Resting Oxygen Delivery Room Air Nasal Cannula Nasal Cannula Oxygen Flow Rate (L/min) 1 2 Pulse Oximetry (90-100 %) 87 L 87 L 90 Pulse Rate (60-100 beats/min) 89 Home Oxygen Evaluation Comments Treatment Charges O2 Evaluation - Inpatient 12/27/21 12/27/21 12/27/21 11:35 11:36 11:37 Home O2 Evaluation Test Phase Exercise Exercise Exercise Oxygen Delivery Nasal Cannula Nasal Cannula Nasal Cannula Oxygen Flow Rate (L/min) 2 3 4 Pulse Oximetry (90-100 %) 86 L 87 L 90 Pulse Rate (60-100 beats/min) 116 H 119 H Home Oxygen Evaluation Comments Treatment Charges 12/27/21 11:45 Home O2 Evaluation Test Phase Resting Oxygen Delivery Nasal Cannula Oxygen Flow Rate (L/min) 2 Pulse Oximetry (90-100 %) 92 Pulse Rate (60-100 beats/min) 96 Home Oxygen Evaluation Comments PT REQUIRES 2 L AT REST AND 4 L WITH ACTIVITY Treatment Charges
--- NOTE | 2021-12-27 12:14 | PCRCNOTE ---
HOME O2 EVAL COMPLETED, PT NOT D/C TODAY, NEEDS 2 L AT REST AND 4 L WITH ACTIVITY.
--- NOTE | 2021-12-27 12:57 | PM.IMPN ---
Progress Note: A&P Additional Plan 46-year-old female smoker with COPD, chronic pain syndrome, anxiety, and arthritis with a positive RODO who presented to the emergency department from home for evaluation of shortness of breath 1)Acute Hypoxic Resp Failure: COPD exacerbation C/w O2 support c/w albuterol c/w fluticasone/salmeterol c/w doxcycline+Ceftriaxone C/w prednisone Will likely need O2 support for home Smoking cessation counseling monitor leucocytosis 2)c/w rest of home meds 3)DVT ppx: Hep SQ 4)Code:Full 5)Dispo:pending improvement in hypoxia Time Spent With Patient Time with patient: 25 - 35 minutes Subjective Date/time seen: 12/27/21 12:57 no acute events overnight, currently on 3L of NC, feeling slightly better Review of Systems Constitutional: Constitutional: Reports no additional constitutional complaints Eyes: Eyes: Reports no additional eye complaints ENT: Reports system reviewed and no additional complaints, except as documented Cardiovascular: Cardiovascular: Reports no additional cardiovascular complaints Respiratory: Respiratory: Reports wheezing Gastrointestinal: Gastrointestinal: Reports no additional gastrointestinal complaints Musculoskeletal: Musculoskeletal: Reports no additional musculoskeletal complaints Neurologic: Reports system reviewed and no additional complaints, except as documented Exam Const: General: no acute distress Other: on Nasal canula HENMT: Mouth: Yes moist mucous membranes Eyes: Sclera: sclerae normal Pupils: Equal, round and reactive pupils present Neck: Neck: supple Resp: Auscultation: wheezes Other: Right sided exp wheezes present Cardio: Rate: regular rate Rhythm: regular rhythm GI: GI Palp: Yes Soft to palpation Auscultation: normal bowel sounds Skin: General skin exam: normal color Neuro: Cognition (Neuro): normal cognition Speech: normal speech Extrem: General: normal to inspection Psych: Mental Status: mental status grossly normal Objective Data Vital Signs Vital Signs: Vital Signs - 24 hr 12/26/21 14:05 12/26/21 14:13 12/26/21 15:37 Temperature 97.9 F Pulse Rate 80 81 54 L Respiratory Rate 18 18 14 Blood Pressure 137/59 L Pulse Oximetry 91 12/26/21 15:42 12/26/21 20:25 12/26/21 20:31 Temperature Pulse Rate 54 L 82 82 Respiratory Rate 14 18 Blood Pressure Pulse Oximetry 91 89 L 12/26/21 20:35 12/26/21 21:47 12/27/21 02:16 Temperature 97.7 F Pulse Rate 80 77 65 Respiratory Rate 18 24 H 18 Blood Pressure 134/73 Pulse Oximetry 90 12/27/21 02:29 12/27/21 05:58 12/27/21 08:48 Temperature 97.8 F Pulse Rate 66 68 67 Respiratory Rate 18 18 18 Blood Pressure 142/79 H Pulse Oximetry 94 12/27/21 08:55 12/27/21 09:00 12/27/21 11:30 Temperature Pulse Rate 69 69 89 Respiratory Rate 18 Blood Pressure Pulse Oximetry 89 L 87 L 12/27/21 11:31 12/27/21 11:32 12/27/21 11:35 Temperature Pulse Rate 116 H Respiratory Rate Blood Pressure Pulse Oximetry 87 L 90 86 L 12/27/21 11:36 12/27/21 11:37 12/27/21 11:45 Temperature Pulse Rate 119 H 96 Respiratory Rate Blood Pressure Pulse Oximetry 87 L 90 92 Intake/Output Intake/Output: Intake & Output 12/24/21 12/25/21 12/26/21 12/27/21 23:59 23:59 23:59 23:59 Intake Total 170 2240 1620 240 Output Total 2230 Balance 326 58 3130 240 Meds/Results Medications: Active Medications Generic Name Dose Route Start Last Admin Trade Name Freq PRN Reason Stop Dose Admin Hydrocodone Bitart/Acetaminophen 1 tab 12/24/21 21:24 12/27/21 09:20 Hydrocodone/Acetaminophen (*Crx) 5-325 Mg Tablet PO 1 tab TID PRN Administration MODERATE PAIN Albuterol 5 mg 12/24/21 20:00 12/27/21 08:50 Albuterol Sulfate Neb 2.5 Mg/0.5 Ml Inh INHALATION 5 mg Q6HRT MILLI Administration Clonazepam 1 mg 12/24/21 22:00 12/27/21 05:56 Clonazepam (*Crx) 0.5 Mg Tablet PO 1 mg Q8H
[2021-12-27] MEDS: HEPARIN SODIUM 5,000 UNITS/ML VIAL 5000 UNITS SUB-Q (20:03)
[2021-12-28] VITALS (15 sets, daily range): BP systolic 143–151; BP diastolic 73–82; PULSE 63–73; RESP 16–18; TEMP 35.2–36.3; O2SAT 84–95
[2021-12-28] MEDS: ALBUTEROL SULFATE NEB 2.5 MG/0.5 ML INH 5 MG INHALATION ×4 (02:17→20:12)
[2021-12-28] MEDS: IPRATROPIUM BR 0.02% INH SOLN 0.5 MG/2.5 ML VIAL INHALATION ×4 (02:17→20:13)
[2021-12-28] MEDS: LEVOTHYROXINE SODIUM 50 MCG TABLET PO (06:14)
[2021-12-28] MEDS: CYCLOBENZAPRINE HCL 10 MG TABLET PO ×3 (06:14→20:45)
[2021-12-28] MEDS: GABAPENTIN 300 MG CAPSULE 600 MG PO ×3 (06:14→20:46)
[2021-12-28] MEDS: clonazePAM (*CRX) 0.5 MG TABLET 1 MG PO ×3 (06:14→20:50)
[2021-12-28 07:46] LABS: Basophils Absolute Auto 0.1 K/mm3 (0.0-0.1); Basophils Percent Auto 0.3 % (0.2-1.2); Eosinophils Absolute Auto 0.4 K/mm3 (0-0.3); Eosinophils Percent Auto 2.8 % (0-4.4); Hematocrit 42.6 % (37.0-47.0); Hemoglobin 14.3 g/dL (12.0-15.0); Immature Granulocyte Absolute 0.19 K/mm3 (0.00-0.031); Immature Granulocyte Percent A 1.3 % (0-0.5); Lymphocytes Absolute Auto 3.31 K/mm3 (0.9-3.2); Lymphocytes Percent Auto 22.7 % (18.3-44.2); Mean Corpuscular HGB Conc 33.6 g/dl (32-36); Mean Corpuscular Hemoglobin 30.4 pg (26-34); Mean Corpuscular Volume 90.4 fl (80-100); Mean Platelet Volume 10.6 fl (7.4-10.4); Monocytes Absolute Auto 0.6 K/mm3 (0.1-0.6); Monocytes Percent Auto 4.4 % (2.6-8.5); Neutrophils Percent Auto 68.5 % (45.5-73.1); Platelet Count Result 396 k/mm3 (150-375); Red Blood Count 4.71 M/mm3 (4.2-5.4); Red Cell Distribution Width 13.8 % (11.5-14.5); White Blood Count 14.6 K/mm3 (4.5-10.0)
[2021-12-28] MEDS: FLUTICASONE/SALMETEROL 115-21 MCG INHALER 1 PUFF 2 PUFF INHALATION ×2 (07:56→20:13)
[2021-12-28] MEDS: predniSONE 20 MG TABLET 40 MG PO (08:35)
[2021-12-28] MEDS: DULoxetine HCL 60 MG CAPSULE.DR PO ×2 (08:35→20:45)
[2021-12-28] MEDS: guaiFENesin 12 HR 600 MG TABCR PO ×2 (08:35→20:45)
[2021-12-28] MEDS: DOXYCYCLINE HYCLATE 100 MG TABLET PO ×2 (08:35→20:45)
[2021-12-28] MEDS: HEPARIN SODIUM 5,000 UNITS/ML VIAL 5000 UNITS SUB-Q ×2 (08:36→20:45)
[2021-12-28 14:29] LABS: Pneumococcal Antigen Urine Not Detected (Not Detected)
--- NOTE | 2021-12-28 15:06 | PM.IMPN ---
Progress Note: A&P Assessment and Plan (1) Acute respiratory failure with hypoxia: Code(s): J96.01 - Acute respiratory failure with hypoxia Status: Acute Assessment and Plan: Secondary to diffuse pulmonary infiltrates, likely pneumonia. Add iv rocephin and zithromax add iv steroids and nebulisers (2) Pneumonia: Qualifiers: Laterality: unspecified laterality Lung location: unspecified part of lung Pneumonia type: due to unspecified organism Qualified Code(s): J18.9 - Pneumonia, unspecified organism Code(s): J18.9 - Pneumonia, unspecified organism Status: Acute Assessment and Plan: SARS-CoV-2 by PCR was negative. Continue iv rocephin and zithromax add iv steroids and nebulisers (3) Chronic obstructive pulmonary disease: Code(s): J44.9 - Chronic obstructive pulmonary disease, unspecified Status: Chronic Assessment and Plan: Add IV steroids (4) Tobacco dependence: Code(s): F17.200 - Nicotine dependence, unspecified, uncomplicated Status: Acute Assessment and Plan: Smoking cessation is strongly adviced pt given nictone gum (5) Hypertension: Code(s): I10 - Essential (primary) hypertension Status: Acute Assessment and Plan: Blood pressures were reviewed and they are stable. Continue antihypertensives and monitor daily. (6) Chronic pain syndrome: Code(s): G89.4 - Chronic pain syndrome Status: Acute Assessment and Plan: Continue cyclobenzaprine, hydrocodone, and gabapentin. Discussed pain management clinic (7) Hypothyroidism: Code(s): E03.9 - Hypothyroidism, unspecified Status: Acute Assessment and Plan: Continue levothyroxine (8) Anxiety: Code(s): F41.9 - Anxiety disorder, unspecified Status: Acute Assessment and Plan: Continue duloxetine and clonazepam as needed. Subjective Date/time seen: 12/28/21 15:06 Interval history: 46-year-old female smoker with COPD, chronic pain syndrome, anxiety, and arthritis with a positive RODO who presented to the emergency department from home for evaluation of shortness of breath. Pt continues to smoke. Pt wants to cut back. Prefers to try nicotine gum. Pt still needing 2 liters of oxygen and appears wheezy today Review of Systems Review of Systems: All systems reviewed & are unremarkable except as noted in HPI and below Exam Narrative: General: Obese female Neck: Supple. No JVD or lymphadenopathy. Respiratory: Mildly tachypneic BL wheezes in both lungs Cardiovascular: Regular rate and rhythm with S1-S2. Gastrointestinal: Abdomen is soft, obese, nontender, and nondistended with positive bowel sounds. Skin: Warm and dry. No rash or lesions on limited exam. Extremities: No cyanosis, clubbing, or edema. Radial and pedal pulses intact. Neurological: Alert. Cranial nerves 2-12 are grossly intact. No gross focal deficits to casual conversation. Psychiatric: Pleasant and cooperative with normal mood and affect. Objective Data Vital Signs Vital Signs: Vital Signs - 24 hr 12/27/21 20:00 12/27/21 20:06 12/27/21 20:07 Temperature Pulse Rate 73 76 Respiratory Rate 16 16 Blood Pressure Pulse Oximetry 94 96 12/27/21 20:13 12/27/21 22:00 12/28/21 02:21 Temperature 36.4 C Pulse Rate 77 73 63 Respiratory Rate 16 16 18 Blood Pressure 122/56 L Pulse Oximetry 94 12/28/21 02:31 12/28/21 05:50 12/28/21 07:52 Temperature 36.3 C L Pulse Rate 64 65 68 Respiratory Rate 18 16 18 Blood Pressure 151/82 H Pulse Oximetry 93 12/28/21 07:56 12/28/21 08:00 12/28/21 08:01 Temperature Pulse Rate 67 Respiratory Rate 18 Blood Pressure Pulse Oximetry 95 95 12/28/21 14:00 12/28/21 14:18 12/28/21 14:26 Temperature 35.2 C L Pulse Rate 73 68 65 Respiratory Rate 18 18 18 Blood Pressure 143/78 H Pulse Oximetry 94 Intake/Output Int
[2021-12-28] MEDS: methylPREDNISolone SOD SUCC 40 MG VIAL IV PUSH (17:31)
[2021-12-28] MEDS: ONDANSETRON INJ 4 MG/2 ML VIAL IV PUSH ×2 (17:32→17:35)
[2021-12-29] VITALS (8 sets, daily range): BP systolic 107–142; BP diastolic 75–81; PULSE 61–80; RESP 17–18; TEMP 36–36.2; O2SAT 92–96
[2021-12-29] MEDS: IPRATROPIUM BR 0.02% INH SOLN 0.5 MG/2.5 ML VIAL INHALATION ×2 (01:58→08:17)
[2021-12-29] MEDS: ALBUTEROL SULFATE NEB 2.5 MG/0.5 ML INH 5 MG INHALATION ×2 (01:58→08:16)
[2021-12-29 05:06] LABS: Legionella pneumophila Ag Ur Not Detected (Not Detected)
[2021-12-29] MEDS: LEVOTHYROXINE SODIUM 50 MCG TABLET PO (06:00)
[2021-12-29] MEDS: CYCLOBENZAPRINE HCL 10 MG TABLET PO ×2 (06:00→13:03)
[2021-12-29] MEDS: GABAPENTIN 300 MG CAPSULE 600 MG PO ×2 (06:02→13:03)
[2021-12-29] MEDS: clonazePAM (*CRX) 0.5 MG TABLET 1 MG PO ×2 (06:02→13:05)
[2021-12-29] MEDS: FLUTICASONE/SALMETEROL 115-21 MCG INHALER 1 PUFF 2 PUFF INHALATION (08:17)
[2021-12-29] MEDS: DULoxetine HCL 60 MG CAPSULE.DR PO (08:49)
[2021-12-29] MEDS: guaiFENesin 12 HR 600 MG TABCR PO (08:49)
[2021-12-29] MEDS: AZITHROMYCIN 250 MG TABLET 500 MG PO (08:49)
[2021-12-29] MEDS: methylPREDNISolone SOD SUCC 40 MG VIAL IV PUSH ×2 (08:49→13:03)
[2021-12-29] MEDS: DOXYCYCLINE HYCLATE 100 MG TABLET PO (08:49)
[2021-12-29] MEDS: HEPARIN SODIUM 5,000 UNITS/ML VIAL 5000 UNITS SUB-Q (08:50)
--- NOTE | 2021-12-29 10:46 | PM.DS ---
DS: Admitting Diagnosis Discharge Date 12/29/2021 Admitting Diagnosis Shortness of breath DS: Discharge Diagnosis Discharge Diagnosis (1) Acute respiratory failure with hypoxia: Code(s): J96.01 - Acute respiratory failure with hypoxia Status: Acute Assessment and Plan: Secondary to diffuse pulmonary infiltrates, likely pneumonia. Add iv Rocephin and Zithromax add iv steroids and nebulizers pt did well can transition to oral abx and steroids. (2) Pneumonia: Qualifiers: Laterality: unspecified laterality Lung location: unspecified part of lung Pneumonia type: due to unspecified organism Qualified Code(s): J18.9 - Pneumonia, unspecified organism Code(s): J18.9 - Pneumonia, unspecified organism Status: Acute Assessment and Plan: SARS-CoV-2 by PCR was negative. Continue iv rocephin and zithromax add iv steroids and nebulizers, pt did well can transition to oral abx and steroids. (3) Chronic obstructive pulmonary disease: Code(s): J44.9 - Chronic obstructive pulmonary disease, unspecified Status: Chronic Assessment and Plan: Add IV steroids transition to oral steroids (4) Tobacco dependence: Code(s): F17.200 - Nicotine dependence, unspecified, uncomplicated Status: Acute Assessment and Plan: Smoking cessation is strongly adviced pt given nictone gum (5) Hypertension: Code(s): I10 - Essential (primary) hypertension Status: Acute Assessment and Plan: Blood pressures were reviewed and they are stable. Continue antihypertensives and monitor daily. (6) Chronic pain syndrome: Code(s): G89.4 - Chronic pain syndrome Status: Acute Assessment and Plan: Continue cyclobenzaprine, hydrocodone, and gabapentin. Discussed pain management clinic (7) Hypothyroidism: Code(s): E03.9 - Hypothyroidism, unspecified Status: Acute Assessment and Plan: Continue levothyroxine (8) Anxiety: Code(s): F41.9 - Anxiety disorder, unspecified Status: Acute Assessment and Plan: Continue duloxetine and clonazepam as needed. DS: Summary Hospital Course Hospital Course: 46-year-old female smoker with COPD, chronic pain syndrome, anxiety, and arthritis with a positive RODO who presented to the emergency department from home for evaluation of shortness of breath. Pt continues to smoke. Pt wants to cut back. Prefers to try nicotine gum. Pt still needing 2 liters of oxygen and appears wheezy today. Pt treated with rocephin and zithromax add iv steroids and nebulisers, pt did well, can transition to oral steroids and ABX. Unfortunately pt failed her ambulatory walk study and will need oxygen on discharge 2 liters at rest and 4 liters on ambulation. Advised pt to cut smoking don. Pt can use nicotine gum to help quit smoking. Time Spent with Patient Time attestation: Total time spent providing and/or coordinating discharge services:45 minutes on day of discharge Exam Narrative: General: Obese female Neck: Supple. No JVD or lymphadenopathy. Respiratory: Mildly tachypneic BL wheezes in both lungs Cardiovascular: Regular rate and rhythm with S1-S2. Gastrointestinal: Abdomen is soft, obese, nontender, and nondistended with positive bowel sounds. Skin: Warm and dry. No rash or lesions on limited exam. Extremities: No cyanosis, clubbing, or edema. Radial and pedal pulses intact. Neurological: Alert. Cranial nerves 2-12 are grossly intact. No gross focal deficits to casual conversation. Psychiatric: Pleasant and cooperative with normal mood and affect. DS: Data Data Completed and Pending Labs on day of discharge: Labs from last 24 hours 12/25/21 12/25/21 06:18 06:18 Ur L.pneumophila Ag Not detected Urine Pneumococcal Ag Not detected Discharge Plan Discharge Attending physician on discharge: Dixie Villalta Discharging Clinician: Angel
--- NOTE | 2021-12-29 11:06 | PCCCNOTE ---
On 12/29/21, the student, [Blanche Valencia ], provided care and completed [facility] on [facility]. I have reviewed the student's documentation and agree with the findings.
--- NOTE | 2021-12-29 13:58 | PC.NURSE ---
Awaiting o2 delivery for respiratory for discharge home.
--- NOTE | 2021-12-29 14:37 | PC.NURSE ---
Pt discharging home with 02, pt ok to drive self per MD Villalta. IV removed.
--- NOTE | 2021-12-29 14:54 | PC.NURSE ---
On 12/29/21, the student, Gil Joseph, provided care and completed [facility] documentation on this patient. I have reviewed the student's documentation and agree with the findings.
--- NOTE | 2021-12-29 14:58 | PC.NURSE ---
On 12/29/21, the student, Caryl Bruno, provided care and completed [facility] documentation on this patient. I have reviewed the student's documentation and agree with the findings.
== END 2021-12-29 15:00 | disposition home or self-care (01) | DRG 189 ==
LOC: ANHED 15:47 → ANHIMU 16:13 → ANH3MEDSUR 12-27 13:53 → ANHIMU 12-30 13:42
PROVIDERS: Emergency Medicine; Internal Medicine; Nurse Practitioner Family; Physician Assistant; Admitting Provider Family Medicine; Emergency Provider Emergency Medicine; PCP Family Medicine; Visit Provider Family Medicine
DX: J96.01 Acute respiratory failure with hypoxia (principal); J18.9 Pneumonia, unspecified organism; J44.0 Chronic obstructive pulmonary disease with (acute) lower respiratory infection; E78.5 Hyperlipidemia, unspecified; E03.9 Hypothyroidism, unspecified; I10 Essential (primary) hypertension; F41.9 Anxiety disorder, unspecified; Z86.718 Personal history of other venous thrombosis and embolism; G89.4 Chronic pain syndrome; G47.33 Obstructive sleep apnea (adult) (pediatric); J45.909 Unspecified asthma, uncomplicated; F17.210 Nicotine dependence, cigarettes, uncomplicated; Z20.822 Contact with and (suspected) exposure to COVID-19; M15.0 Primary generalized (osteo)arthritis; Z82.3 Family history of stroke; Z79.899 Other long term (current) drug therapy; Z88.1 Allergy status to other antibiotic agents; Z79.891 Long term (current) use of opiate analgesic; Z80.8 Family history of malignant neoplasm of other organs or systems
CPT/HCPCS: 36415; 36600; 71045; 71046; 80053; 82805; 83735; 83880; 84439; 84443; 84480; 84484; 85025; 85027; 86140; 87070; 87205; 87449; 87804; 87899; 93005; 94618; 94640; 94667; 94668; 96365; 96375; 99285; A9270; C9803; G0378; J0456; J0696; J1644; J1885; J2405; J2920; J2930; J7512; U0003; U0005

== ENCOUNTER 2022-07-13 16:41 | Outpatient (CLI) | payer MEDICARE, SELFPAY ==
--- NOTE | ~2022-07-13 | XR_ITS ---
EXAMINATION: XR lumbar spine 6V w bending DATE: 07/13/2022 18:28 INDICATION: Lumbar radicular pain. TECHNIQUE: 7 views of lumbar spine including flexion and extension views were obtained. COMPARISON: Lumbar spine radiographs 02/12/2020 FINDINGS: There is 3 degrees levocurvature of lumbar spine. Lower lumbar spine is hypomobile with fle xion and extension. Vertebral body heights are normal. Intervertebral disc heights are normal. There are endplate osteophytes at multiple levels. There is multilevel mild facet joint osteoarthritis. The re is moderate left facet joint osteoarthritis at L5-S1. IMPRESSION: 1. Mild lumbar spondylosis. Reviewed, dictated and finalized at location A. IMPRESSION: 1. Mild lumbar spondylosis.
== END 2022-07-13 16:42 ==
PROVIDERS: PCP Nurse Practitioner Family; Visit Provider Nurse Practitioner Family
DX: M47.26 Other spondylosis with radiculopathy, lumbar region (principal)
CPT/HCPCS: 72114

== ENCOUNTER → 2023-06-15 14:58 | Outpatient (CLI) | payer MEDICARE, MEDICAID, SELFPAY ==
--- NOTE | ~2023-06-15 | US_ITS ---
EXAMINATION: US thyroid DATE: 06/15/2023 15:23 INDICATION: Goiter. TECHNIQUE: Multiple ultrasound images of the thyroid were obtained. COMPARISON: None. FINDINGS: The right thyroid lobe measures 4.0 x 1.3 x 1.5 cm. The left thyroid lobe measures 3.7 x 1.5 x 1.4 c m. In the left thyroid lobe, there is a 6 mm solid, hypoechoic, wider than tall nodule with smooth m argin without echogenic foci (TI-RADS TR4). In the left thyroid lobe, there is a 6 mm solid, hypoecho ic, wider than tall nodule with smooth margin without echogenic foci (TR4). In the right hepatic lobe , there is a 7 mm solid, hypoechoic, wider than tall nodule with smooth margin without echogenic foci (TR4). In the right thyroid lobe, there is a 7 mm solid, hypoechoic, wider than tall nodule with smo oth margin without echogenic foci (TR4). There are other subcentimeter nodules in the thyroid. IMPRESSION: 1. Small thyroid nodules, likely not clinically significant. No follow-up is needed. Reviewed, dictated and finalized at location E. IMPRESSION: 1. Small thyroid nodules, likely not clinically significant. No follow-up is ne eded.
== END ==
PROVIDERS: PCP Nurse Practitioner Family; Visit Provider Family Medicine
DX: E04.2 Nontoxic multinodular goiter (principal)
CPT/HCPCS: 76536